=== PATIENT | female | born 1980 | race Caucasian/White ===

== ENCOUNTER → 2017-01-01 | Outpatient (REF) | payer BC | LOC: M LAB REF 12:35 | PROVIDERS: ATTEND Physician Assistant | DX: R30.0 Dysuria (principal) ==

== ENCOUNTER → 2018-12-25 | Outpatient (REF) | payer OTHER | LOC: M SFHCLERA 10:52 | PROVIDERS: ATTEND Physician Assistant | DX: R50.9 Fever, unspecified (principal) ==

== ENCOUNTER → 2019-09-27 | Outpatient (CLI) | payer BC ==
--- NOTE | 2019-09-27 14:00 | REP ---
Chest x-ray: Two views. History: Wheezing. No comparison study. Findings: The lungs are symmetrically aerated and clear. Pleural angles are sharp. Heart size is normal. Pulmonary vasculature is not increased. No significant bony abnormality. Impression: Negative chest x-ray. Electronically Signed by Junito Berry MD 09/27/2019 01:51 P
== END ==
LOC: M LRY 13:17
PROVIDERS: ATTEND Physician Assistant
DX: R06.2 Wheezing (principal)